=== PATIENT | female | born 1990 | race Caucasian/White ===

== ENCOUNTER 2020-03-16 15:50 | Inpatient (IN) ==
[2020-03-16] MEDS ORDERED: BUTORPHANOL 1 MG/ML VIAL IV PRN (16:06)
[2020-03-16] MEDS ORDERED: BUTORPHANOL 2 MG/ML VIAL IV PRN (16:06)
[2020-03-16 16:28] LABS: Basophils % 0.2 % (0.0-0.8); Eosinophils # 0.1 10*3/uL (0.0-0.87); Eosinophils % 0.8 % (0.00-10.9); Hematocrit 37.4 VOL% (35.7-47.0); Hemoglobin 12.6 GM/DL (12.0-16.0); Immature Granulocytes % 0.5 %; Immature Granulocytes Absolute 0.05 #; Lymphocytes # 1.4 10*3/uL (1.4-4.0); Mean Corpuscular HGB Conc 33.7 GM/DL (32-36); Mean Corpuscular Volume 92.6 FL (87-102); Monocytes % 6.5 % (1.7-12.7); Platelet Count 179 T/CUMM (130-400); Red Blood Count 4.04 MC/CUMM (3.8-5.5); Red Cell Distribution Width 12.4 % (9.3-17.3); White Blood Count 9.6 T/CUMM (4-12)
[2020-03-16] MEDS ORDERED: DINOPROSTONE VAG GEL 10 MG SYRINGE VAG ONE ×2 (16:42→16:50)
[2020-03-16 16:46] LABS: Alanine Aminotransferase 13 U/L (13-56); Alkaline Phosphatase 162 U/L (45-117); Aspartate Amino Transferase 13 U/L (0-37); Bilirubin,Total < 0.39 MG/DL (0.2-1.0); Blood Urea Nitrogen 8 MG/DL (7-18); Calcium 9.2 MG/DL (8.5-10.1); Estimated Glom Filtration Rate 134 ML/MIN; Glucose 90 MG/DL (74-106); Uric Acid 5.8 MG/DL (2.6-6.0)
[2020-03-16] MEDS: LACTATED RINGERS 1,000 ML IV PRN (23:00)
[2020-03-16] MEDS: MEPERIDINE 50 MG/1 ML VIAL IV PRN (23:01)
[2020-03-16] MEDS: ONDANSETRON 4 MG/2 ML VIAL IV PRN (23:07)
[2020-03-17] MEDS ORDERED: OXYTOCIN/LR 20 UNIT/1,000 ML BAG IV SCH ×2 (02:00→03:00)
[2020-03-17] MEDS: MEPERIDINE 50 MG/1 ML VIAL IV PRN (04:43)
[2020-03-17] MEDS ORDERED: CITRIC ACID/SODIUM CITRATE 30 ML UDCUP PO ONE (07:27)
[2020-03-17] MEDS ORDERED: NALOXONE 0.4 MG/ML VIAL IV PRN (07:27)
[2020-03-17] MEDS ORDERED: LACTATED RINGERS 1,000 ML IV ONE (07:27)
[2020-03-17] MEDS ORDERED: PROMETHAZINE 25 MG/1 ML VIAL IM ONE (07:27)
[2020-03-17] MEDS ORDERED: ePHEDrine 50 MG/ML AMP IV PRN (07:27)
[2020-03-17] MEDS ORDERED: diphenhydrAMINE 50 MG/1 ML VIAL IV PRN ×2 (07:27)
[2020-03-17] MEDS ORDERED: FAMOTIDINE 20 MG/2 ML VIAL IV ONE (07:27)
[2020-03-17] MEDS ORDERED: hydrOXYzine HCL 25 MG/1 ML VIAL IM PRN (07:27)
[2020-03-17] MEDS: fentaNYL 2 MCG/ROPIV 0.2% EPID 100 ML EPIDURAL SCH ×2 (10:22→19:00)
[2020-03-17 11:46] LABS: Apearance,Urine CLEAR (Clear); Bacteria,Urine Occasional /HPF (Few); Bilirubin,Urine Negative (Negative); Blood, Urine Negative (Negative); Glucose,Urine (UA) Negative (Negative); Ketones,Urine 20 mg/dL (Negative); Mucus,Urine Occasional /LPF (Occasional); Nitrite,Urine Negative (Negative); Protein,Urine Negative; RBC,Urine 1 /HPF (0-4); Squamous Epithelial Cell,Urine Occasional /HPF (0-10); Urine Color Yellow (Yellow); Urine Specific Gravity 1.016 (1.001-1.035); Urine Urobilinogen < 2.0 EU/DL (0.2-1.0); WBC,Urine <1 /HPF (0-6)
[2020-03-17] MEDS: LACTATED RINGERS 1,000 ML IV PRN ×2 (13:36→20:15)
[2020-03-17] MEDS ORDERED: fentaNYL 100 MCG/2 ML VIAL ONE (16:43)
[2020-03-17] MEDS: ONDANSETRON 4 MG/2 ML VIAL IV PRN (19:45)
[2020-03-18] MEDS ORDERED: OXYTOCIN 10 UNIT/ML VIAL IM ONE (01:36)
[2020-03-18] MEDS ORDERED: OXYTOCIN/LR 30 UNIT/1,000 ML BAG IV ONE (01:36)
[2020-03-18] MEDS ORDERED: ceFAZolin 2,000 MG in PREMIX 1 EACH IV ONE (01:36)
[2020-03-18] MEDS ORDERED: ACETAMINOPHEN 500 MG TABLET PO ONE (01:40)
[2020-03-18] MEDS ORDERED: METHYLERGONOVINE 0.2 MG/1 ML AMP ONE (01:43)
[2020-03-18] MEDS ORDERED: miSOPROStoL 200 MCG TABLET ONE (01:43)
[2020-03-18] MEDS ORDERED: CARBOPROST TROMETHAMINE 250 MCG/ML AMP IM ONE (01:44)
[2020-03-18] MEDS ORDERED: RHO(D) IMMUNE GLOBULIN 300 MCG SYRINGE IM ONE (02:37)
[2020-03-18] MEDS ORDERED: ACETAMINOPHEN 325 MG TABLET PO PRN (02:37)
[2020-03-18] MEDS ORDERED: OXYTOCIN/LR 20 UNIT/1,000 ML BAG IV ONE (02:37)
[2020-03-18] MEDS ORDERED: ONDANSETRON 4 MG/2 ML VIAL IV PRN (02:37)
[2020-03-18] MEDS ORDERED: ONDANSETRON 4 MG/2 ML VIAL ONE (02:57)
[2020-03-18] MEDS ORDERED: LIDOCAINE MPF 2% /EPI 20 ML VIAL ONE (02:57)
[2020-03-18] MEDS ORDERED: propofoL 200 MG/20 ML VIAL IV ONE (02:57)
[2020-03-18] MEDS ORDERED: PHENYLEPHRINE 1 MG/10 ML SYRINGE IV ONE (02:57)
[2020-03-18] MEDS ORDERED: MORPHINE 10 MG/10 ML VIAL ONE (02:57)
[2020-03-18] MEDS ORDERED: LACTATED RINGERS 1,000 ML IV SCH (03:00)
[2020-03-18 03:06] LABS: Cord Arterial Blood HCO3 19.1 MMOL/L
[2020-03-18 03:07] LABS: Cord Venous Blood HCO3 21.7 MMOL/L; Cord Venous Blood PCO2 40.1 MMHG; Cord Venous Blood PO2 27.2 MMHG
[2020-03-18 07:23] LABS: Basophils % 0.2 % (0.0-0.8); Eosinophils % 0.1 % (0.00-10.9); Hematocrit 29.6 VOL% (35.7-47.0); Immature Granulocytes % 0.6 %; Lymphocytes # 0.8 10*3/uL (1.4-4.0); Lymphocytes % 4.8 % (21.3-54.2); Mean Corpuscular HGB Conc 33.4 GM/DL (32-36); Mean Corpuscular Volume 93.7 FL (87-102); Mean Platelet Volume 11.4 FL (9.6-12.0); Monocytes % 5.8 % (1.7-12.7); Neutrophils % 88.5 % (38.7-73.9); Platelet Count 153 T/CUMM (130-400); Red Cell Distribution Width 12.3 % (9.3-17.3)
[2020-03-18 07:39] LABS: Hemoglobin 9.9 GM/DL (12.0-16.0); Red Blood Count 3.16 MC/CUMM (3.8-5.5); White Blood Count 17.4 T/CUMM (4-12)
[2020-03-18 07:52] LABS: Eosinophils 1 % (0-10); Hypochromasia 1+; Lymphocytes 4 % (20-55); Platelet Estimate Normal; Segmented Neutrophils 92 % (50-85); Total Cells Counted 100
[2020-03-18] MEDS ORDERED: diphenhydrAMINE CAP 25 MG CAPSULE PO PRN (09:18)
[2020-03-18] MEDS: DOCUSATE SODIUM 100 MG CAPSULE PO SCH ×2 (09:32→21:37)
[2020-03-18] MEDS: IBUPROFEN 800 MG TABLET PO PRN ×2 (09:32→18:02)
[2020-03-18] MEDS: MULTIVITAMIN (PRENATAL) TABLET PO SCH (09:32)
[2020-03-18] MEDS ORDERED: ceFAZolin 1,000 MG in SYRINGE 1 EACH IV SCH ×2 (11:00→18:30)
[2020-03-18] MEDS: METOCLOPRAMIDE 10 MG TABLET PO SCH ×2 (14:38→21:37)
[2020-03-18] MEDS: MAGNESIUM HYDROXIDE SUSP 30 ML UDCUP PO PRN (21:37)
[2020-03-19] MEDS: IBUPROFEN 800 MG TABLET PO PRN ×3 (04:37→19:50)
[2020-03-19] MEDS: SIMETHICONE CHEW 80 MG TABLET PO PRN (10:16)
[2020-03-19] MEDS: DOCUSATE SODIUM 100 MG CAPSULE PO SCH ×2 (10:16→19:50)
[2020-03-19] MEDS: METOCLOPRAMIDE 10 MG TABLET PO SCH ×2 (10:16→17:05)
[2020-03-19] MEDS: MAGNESIUM HYDROXIDE SUSP 30 ML UDCUP PO PRN ×2 (10:16→19:50)
[2020-03-19] MEDS: MULTIVITAMIN (PRENATAL) TABLET PO SCH (10:17)
[2020-03-19 12:16] LABS: Apearance,Urine CLEAR (Clear); Bacteria,Urine Occasional /HPF (Few); Bilirubin,Urine Negative (Negative); Blood, Urine Large mg/dL (Negative); Glucose,Urine (UA) Negative (Negative); Ketones,Urine Negative (Negative); Mucus,Urine Occasional /LPF (Occasional); Nitrite,Urine Negative (Negative); Protein,Urine Negative; RBC,Urine 2 /HPF (0-4); Squamous Epithelial Cell,Urine Occasional /HPF (0-10); Urine Color Colorless (Yellow); Urine Specific Gravity 1.001 (1.001-1.035); Urine Urobilinogen < 2.0 EU/DL (0.2-1.0); WBC,Urine 1 /HPF (0-6)
[2020-03-20] MEDS: METOCLOPRAMIDE 10 MG TABLET PO SCH ×2 (04:43→04:58)
[2020-03-20] MEDS: IBUPROFEN 800 MG TABLET PO PRN ×2 (05:48→12:55)
[2020-03-20 11:40] VITALS: BP 106/63
[2020-03-20] MEDS ORDERED: DIPH/TET/ACEL PERT BOOSTER VACCINE 0.5 ML VIAL IM ONE (12:52)
[2020-03-20] MEDS: MAGNESIUM HYDROXIDE SUSP 30 ML UDCUP PO PRN (13:07)
[2020-03-20] MEDS: MULTIVITAMIN (PRENATAL) TABLET PO SCH (13:07)
[2020-03-20] MEDS: DOCUSATE SODIUM 100 MG CAPSULE PO SCH (13:07)
[2020-03-20] MEDS: SIMETHICONE CHEW 80 MG TABLET PO PRN (13:07)
== END 2020-03-20 13:20 | disposition home or self-care (01) | DRG 788 ==
LOC: N.LDOUT 15:50 → N.LD 15:54 → N.OB 03-18 04:38
PROVIDERS: ADMIT Obstetrics & Gynecology; ATTEND Obstetrics & Gynecology
PROC: LDCSECT (ICD-10-PCS; 2020-03-18 01:40)